=== PATIENT | female | born 1975 | race Caucasian/White ===

== ENCOUNTER 2021-03-19 12:07 | Emergency (ER) | payer OTHER ==
[~2021-03-19] VITALS: Ht 154.9 cm; Wt 74.9 kg
[2021-03-19 12:08] VITALS: BP 150/81
[2021-03-19] MEDS ORDERED: methocarbamoL 500 MG TAB PO ONE (13:35)
--- NOTE | 2021-03-19 14:49 | REP ---
INDICATION: r sided pain into anterior thigh. COMPARISON: None. TECHNIQUE: 4 x 4 mm helical scanning through the lumbar spine. FINDINGS: CT cannot rule out a disc extrusion. There is no bony cause for foraminal narrowing or central canal stenosis at any level. There is degenerative disc space narrowing at the L1-2 level with air density in the disc space consistent with vacuum phenomena from degenerative disc disease. There is no evidence of an acute fracture or destructive osseous lesion. IMPRESSION: Discogenic changes as described above. <Electronically signed by Camden Jenkins > 03/19/21 [id number]
[2021-03-19] MEDS ORDERED: METH-1164 PO (15:14)
== END 2021-03-19 15:22 | disposition home or self-care (01) ==
LOC: M ED 12:07
DX: M51.36 Other intervertebral disc degeneration, lumbar region (principal); M62.830 Muscle spasm of back; M54.41 Lumbago with sciatica, right side

== ENCOUNTER → 2021-05-04 | Outpatient (CLI) | payer OTHER ==
[~2021-05-04] MED LIST: METH-1164 PO
--- NOTE | 2021-05-04 08:57 | REP ---
INDICATION: RT SIDE LUMBAGO W/ SCIATICA. COMPARISON: None. TECHNIQUE: T1 and T2 weighted axial and sagittal images were obtained. FINDINGS: No abnormal signal is seen in the vertebral bodies. Disc degeneration is present at multiple levels though maximal at the L1/2 level. L1/2: Disc degeneration is present. A 2.5 mm diffuse disc bulge is noted however this does not impact the exiting nerve rootlets. The foramina are adequate bilaterally at this level and no spinal stenosis is present. L2/3: The foramina adequate bilaterally. No significant disc bulge or herniation is identified. No central canal stenosis is evident. L3/4: The foramina are adequate bilaterally. A 4 mm right lateral disc herniation is present best demonstrated on the T1 weighted axial images (page 20 of 36) and on the T2 weighted sagittal images open (page 10 of 15). No central canal stenosis is present. L4/5: The foramina are adequate bilaterally. A 2 mm central disc protrusion is noted with a small radial tear of the annulus in the left paracentral region. This does not impinge upon the exiting nerve rootlets and no central canal stenosis is present. L5/S1: Mild facet joint arthropathy is noted however the foramina are adequate bilaterally. No significant disc bulge, herniation or central canal stenosis is present. IMPRESSION: Right lateral disc herniation at L3/4. <Electronically signed by John Stephens > 05/04/21 [id number]
== END ==
LOC: M RAD 07:28
PROVIDERS: ATTEND Orthopaedic Surgery
DX: M54.41 Lumbago with sciatica, right side (principal)

== ENCOUNTER → 2022-11-28 | Outpatient (REF) | payer OTHER | LOC: M LAB REF 22:34 | PROVIDERS: ATTEND Physician Assistant | DX: J02.9 Acute pharyngitis, unspecified (principal) ==

== ENCOUNTER 2022-12-20 07:22 | Day surgery (SDC) | payer OTHER ==
[~2022-12-20] VITALS: Ht 170.2 cm; Wt 73.4 kg
[2022-12-20] MEDS ORDERED: propofoL 200 MG/20 ML VIAL As Ordered ONE ×3 (07:36→08:48)
[2022-12-20 09:08] VITALS: BP 117/62; TEMP 98; O2SAT 97
== END 2022-12-20 09:19 | disposition home or self-care (01) ==
LOC: M OPP 07:22
PROVIDERS: ATTEND Surgery
DX: Z12.11 Encounter for screening for malignant neoplasm of colon (principal); D12.6 Benign neoplasm of colon, unspecified; Z79.1 Long term (current) use of non-steroidal anti-inflammatories (NSAID); Z88.0 Allergy status to penicillin

== ENCOUNTER → 2025-06-15 | Outpatient (REF) | payer OTHER ==
[2025-06-15 18:11] LABS: APPEARANCE, URINE CLEAR (CLEAR); BACTERIA, URINE AUTO NEGATIVE (NEGATIVE); BILIRUBIN, URINE AUTO NEGATIVE (NEGATIVE); BLOOD, URINE BLOOD 1+ (NEGATIVE); GLUCOSE, URINE (UA) AUTO NEGATIVE (NEGATIVE); KETONE, URINE AUTO NEGATIVE (NEGATIVE); LEUKOCYTE ESTERASE, URINE AUTO TRACE (NEGATIVE); NITRITE, URINE AUTO POSITIVE (NEGATIVE); PROTEIN, URINE AUTO NEGATIVE (NEGATIVE); RBC, URINE AUTO 0 /HPF (0-3); SPECIFIC GRAVITY URINE AUTO 1.002 (1.002-1.035); SQUAMOUS EPITHELIAL CELL UR AU 0 /HPF (0-6); UROBILINOGEN, URINE AUTO 4.0 mg/dL (0.0-2.0); WBC, URINE AUTO 2 /HPF (0-3)
== END ==
LOC: M LAB REF 17:05
PROVIDERS: ATTEND Physician Assistant Medical
DX: N39.0 Urinary tract infection, site not specified (principal)